=== PATIENT | female | born 1940 | race Two or more races ===

== ENCOUNTER 2017-09-26 16:42 | Inpatient (IN) | payer BC, OTHER ==
[~2017-09-26] VITALS: Ht 167.6 cm; Wt 66.9 kg
[~2017-09-26 16:42] MED LIST: ASPI-231 PO; CITA10TA59; LOSA100T27 PO; METO25TA62
[2017-09-26] MEDS ORDERED: LIDOCAINE 1% HCL (LOCAL ANESTH.) INJ 20ML MDV ONE (18:56)
[2017-09-26] MEDS ORDERED: LIDOCAINE 1% (LOCAL ANESTH.) PF 5ml SDV ID ONE (19:00)
[2017-09-26] MEDS ORDERED: BACITRACIN TOP OINT 1 UD PKG TOP ONE ×2 (19:00→21:02)
[2017-09-26 20:13] LABS: Basophils # (auto) 0.1 uL; Basophils % (auto) 0.6 % (0.0-2.0); Eosinophils # (auto) 0.2 uL; Eosinophils % (auto) 1.5 % (0.0-7.0); Hematocrit 40.3 % (36.0-46.0); Hemoglobin 13.6 g/dL (12.2-16.2); Lymphocytes # (auto) 1.2 uL; Lymphocytes % (auto) 11.9 % (10.0-50.0); Mean Corpuscular Hemoglobin 29.9 pg (28.0-32.0); Mean Corpuscular Hgb Conc. 33.8 g/dL (32.0-36.0); Mean Corpuscular Volume 88.5 fL (80.0-100.0); Monocytes # (auto) 0.6 uL; Monocytes % (auto) 5.3 % (0.0-12.0); Neutrophils # (auto) 8.4 uL; Neutrophils % (auto) 80.7 % (37.0-80.0); Platelet Count (auto) 219 10^3/uL (140-450); Red Blood Cells 4.56 10^6/uL (4.0-5.20); Red Cell Distribution Width 14.6 % (11.8-14.3); White Blood Cell 10.4 10^3/uL (4.4-10.8)
[2017-09-26 20:18] LABS: Alanine Aminotransferase 41 U/L (13-56); Albumin 3.7 g/dL (3.4-5.0); Anion Gap 10 (5-15); Aspartate Aminotransferase 31 U/L (15-37); BUN/Creatinine Ratio 15.2; Blood Urea Nitrogen 16 mg/dL (7-18); Carbon Dioxide 22 mmol/L (21-32); Chloride 104 mmol/L (98-107); GFR African American 65 mL/min; GFR Non-African American 54 mL/min; Glucose 100 mg/dL (74-106); Magnesium 1.9 mg/dL (1.6-2.6); Potassium 3.5 mmol/L (3.5-5.1); Sodium 136 mmol/L (136-145)
[2017-09-26 20:19] LABS: INR 0.99 (0.9-1.15); Partial Thromboplastin Time 27.8 sec (23.78-33.04); Prothrombin Time 10.6 sec (9.27-12.13)
[2017-09-26 20:23] LABS: Alkaline Phosphatase 140 U/L (45-117); Bilirubin, Total 0.7 mg/dL (0.2-1.0); Total Protein 7.4 g/dL (6.4-8.2)
[2017-09-26] MEDS ORDERED: ACETAMINOPHEN 325 MG TAB PO ONE (21:00)
[2017-09-26] MEDS ORDERED: ACETAMINOPHEN 500 MG TAB PO PRN (23:15)
[2017-09-26] MEDS ORDERED: ONDANSETRON HCL 4 MG/2 ML VIAL IV PRN (23:15)
[2017-09-26] MEDS ORDERED: HYDROcodone-ACET 5/325MG TAB PO PRN (23:15)
[2017-09-26 23:26] LABS: Urine Bacteria NONE SEEN /hpf (None Seen); Urine Blood TRACE /uL (Negative); Urine Specific Gravity 1.008 (1.001-1.035); Urine WBC 3 /hpf (0 - 5)
[2017-09-26] MEDS ORDERED: cefTRIAXone 1GM/10ml IVPUSH 10 ML IV ONE (23:58)
[2017-09-27] VITALS (10 sets, daily range): BP systolic 103–139; BP diastolic 63–82
[2017-09-27] MEDS ORDERED: NAPR1TAB PO (02:59)
[2017-09-27] MEDS ORDERED: OME20GT GT (02:59)
[2017-09-27] MEDS ORDERED: CITA10TA59 PO (02:59)
[2017-09-27] MEDS ORDERED: LEVO50TA66 PO (02:59)
[2017-09-27] MEDS ORDERED: AMITRIP PO (02:59)
[2017-09-27 06:49] LABS: BUN/Creatinine Ratio 16.2; Calcium 8.9 mg/dL (8.5-10.1); Potassium 3.2 mmol/L (3.5-5.1)
[2017-09-27 06:52] LABS: Basophils # (auto) 0.1 uL; Basophils % (auto) 0.9 % (0.0-2.0); Eosinophils # (auto) 0.2 uL; Hematocrit 34.5 % (36.0-46.0); Lymphocytes # (auto) 1.6 uL; Lymphocytes % (auto) 22.3 % (10.0-50.0); Mean Corpuscular Hemoglobin 30.5 pg (28.0-32.0); Mean Corpuscular Hgb Conc. 34.7 g/dL (32.0-36.0); Mean Corpuscular Volume 87.9 fL (80.0-100.0); Monocytes # (auto) 0.7 uL; Monocytes % (auto) 10.2 % (0.0-12.0); Neutrophils # (auto) 4.4 uL; Neutrophils % (auto) 63.6 % (37.0-80.0); Nucleated Red Blood Cells % 0.1 %; Platelet Count (auto) 184 10^3/uL (140-450); Red Blood Cells 3.93 10^6/uL (4.0-5.20); Red Cell Distribution Width 14.4 % (11.8-14.3)
[2017-09-27] MEDS: LEVOTHYROXINE SODIUM 50 MCG TAB PO SCH (07:53)
[2017-09-27] MEDS ORDERED: cefTRIAXone 1GM/10ml IVPUSH 10 ML IV SCH (09:00)
[2017-09-27] MEDS: ASPirin-EC 81 mg tab PO SCH (09:58)
[2017-09-27] MEDS: CITALOPRAM HYDROBR 20 MG TAB PO SCH (09:58)
[2017-09-27] MEDS: cefTRIAXone 1GM/10ml IVPUSH 10 ML IV SCH ×2 (09:58→21:32)
[2017-09-27] MEDS ORDERED: POTASSIUM CHL 20 Meq TABLET PO ONE (14:30)
[2017-09-27] MEDS ORDERED: SOD CHL 0.9%/ KCL 40MEQ 1,000 ML IV ONE (14:30)
[2017-09-28] MEDS ORDERED: cefTRIAXone 1GM/10ml IVPUSH 10 ML IV SCH
[2017-09-28 05:00] VITALS: BP 133/69
[2017-09-28 05:44] LABS: Basophils # (auto) 0.1 uL; Basophils % (auto) 0.9 % (0.0-2.0); Eosinophils # (auto) 0.2 uL; Eosinophils % (auto) 3.8 % (0.0-7.0); Hemoglobin 12.3 g/dL (12.2-16.2); Lymphocytes # (auto) 1.4 uL; Mean Corpuscular Hemoglobin 30.7 pg (28.0-32.0); Mean Corpuscular Hgb Conc. 34.3 g/dL (32.0-36.0); Mean Corpuscular Volume 89.6 fL (80.0-100.0); Monocytes # (auto) 0.5 uL; Monocytes % (auto) 8.5 % (0.0-12.0); Neutrophils # (auto) 4.1 uL; Neutrophils % (auto) 64.8 % (37.0-80.0); Nucleated Red Blood Cells % 0.1 %; Platelet Count (auto) 174 10^3/uL (140-450); Red Blood Cells 4.02 10^6/uL (4.0-5.20); Red Cell Distribution Width 14.6 % (11.8-14.3); White Blood Cell 6.3 10^3/uL (4.4-10.8)
[2017-09-28] MEDS: LEVOTHYROXINE SODIUM 50 MCG TAB PO SCH (06:18)
[2017-09-28 06:22] LABS: Potassium 4.6 mmol/L (3.5-5.1)
[2017-09-28 06:35] LABS: BUN/Creatinine Ratio 15.2; Calcium 8.7 mg/dL (8.5-10.1)
[2017-09-28 08:52] VITALS: BP 146/92
[2017-09-28] MEDS ORDERED: METOPROLOL TARTRATE 25 MG TAB PO SCH (10:00)
[2017-09-28] MEDS: cefTRIAXone 1GM/10ml IVPUSH 10 ML IV SCH (10:34)
[2017-09-28] MEDS: ASPirin-EC 81 mg tab PO SCH (10:34)
[2017-09-28] MEDS: CITALOPRAM HYDROBR 20 MG TAB PO SCH (10:34)
[2017-09-28 12:19] VITALS: BP 134/81
[2017-09-28 13:00] VITALS: BP 113/74
== END 2017-09-28 14:50 | disposition home or self-care (01) | DRG 604 ==
LOC: ER 16:42 → OVERFLOW 16:43 → TELE-WESTW 23:41 → WEST WING 09-27 00:09
PROVIDERS: ADMIT Nurse Practitioner Family; ATTEND Internal Medicine
PROC: 0HQ1XZZ Repair Face Skin, External Approach (ICD-10-PCS; principal; 2017-09-26)
DX: S01.81XA Laceration without foreign body of other part of head, initial encounter (principal); N17.0 Acute kidney failure with tubular necrosis; G45.9 Transient cerebral ischemic attack, unspecified; I10 Essential (primary) hypertension; E87.6 Hypokalemia; M21.379 Foot drop, unspecified foot; F32.9 Major depressive disorder, single episode, unspecified; F41.9 Anxiety disorder, unspecified; W01.0XXA Fall on same level from slipping, tripping and stumbling without subsequent striking against object, initial encounter; M48.00 Spinal stenosis, site unspecified; Z86.73 Personal history of transient ischemic attack (TIA), and cerebral infarction without residual deficits; Z79.899 Other long term (current) drug therapy; Y93.89 Activity, other specified; Y92.89 Other specified places as the place of occurrence of the external cause; Y99.8 Other external cause status
CPT/HCPCS: 12013; 36415; 70450; 73502; 80048; 80053; 81001; 83735; 84443; 84484; 85025; 85610; 85730; 93005; 93306; 94761; 96374; J2001

== ENCOUNTER 2019-06-23 12:15 | Emergency (ER) | payer OTHER ==
[~2019-06-23] VITALS: Ht 170.2 cm; Wt 77.1 kg
[~2019-06-23 12:15] MED LIST changes: +AMITRIP PO; -CITA10TA59; +CITA10TA59 PO; +LEVO50TA66 PO; +LOSA-39 PO; -LOSA100T27 PO; -METO25TA62; +METO25TA93; +NAPR1TAB PO; +OME20GT GT
[2019-06-23 13:25] LABS: Basophils # (auto) 0.1 10 ^3/uL (0-0.2); Basophils % (auto) 1.1 % (0.0-2.0); Eosinophils # (auto) 0.2 10 ^3/uL (0-0.8); Eosinophils % (auto) 3.7 % (0.0-7.0); Hematocrit 37.2 % (36.0-46.0); Hemoglobin 12.7 g/dL (12.2-16.2); Lymphocytes % (auto) 18.6 % (10.0-50.0); Mean Corpuscular Hgb Conc. 34.1 g/dL (32.0-36.0); Mean Corpuscular Volume 85.1 fL (80.0-100.0); Monocytes # (auto) 0.4 10 ^3/uL (0-1.3); Monocytes % (auto) 8.2 % (0.0-12.0); Neutrophils # (auto) 3.7 10 ^3/uL (1.6-8.6); Neutrophils % (auto) 68.4 % (37.0-80.0); Platelet Count (auto) 211 10^3/uL (140-450); Red Blood Cells 4.38 10^6/uL (4.0-5.20); Red Cell Distribution Width 15.1 % (11.8-14.3); White Blood Cell 5.4 10^3/uL (4.4-10.8)
[2019-06-23 13:42] LABS: Alanine Aminotransferase 30 U/L (13-56); Albumin 3.7 g/dL (3.4-5.0); Anion Gap 5 (5-15); Aspartate Aminotransferase 28 U/L (15-37); Blood Urea Nitrogen 21 mg/dL (7-18); Calcium 8.9 mg/dL (8.5-10.1); Carbon Dioxide 29 mmol/L (21-32); Chloride 98 mmol/L (98-107); GFR African American 65 mL/min; GFR Non-African American 54 mL/min; Glucose 85 mg/dL (74-106); Sodium 132 mmol/L (136-145)
[2019-06-23 13:47] LABS: Alkaline Phosphatase 132 U/L (45-117); Bilirubin, Total 0.7 mg/dL (0.2-1.0); Total Protein 7.4 g/dL (6.4-8.2)
[2019-06-23 13:52] LABS: Potassium 2.7 mmol/L (3.5-5.1)
[2019-06-23] MEDS ORDERED: POTASSIUM CHL 20MEQ/100ML 100 ML IV ONE (14:15)
[2019-06-23] MEDS ORDERED: POTASSIUM EFFERVESENT TAB 25 MEQ PO ONE (14:15)
[2019-06-23 15:08] VITALS: BP 126/68
== END 2019-06-23 15:10 | disposition home or self-care (01) ==
LOC: EDBD 12:15 → ER 12:20
DX: S86.811A Strain of other muscle(s) and tendon(s) at lower leg level, right leg, initial encounter (principal); E87.6 Hypokalemia; F41.9 Anxiety disorder, unspecified; R51 Headache; F32.9 Major depressive disorder, single episode, unspecified; K21.9 Gastro-esophageal reflux disease without esophagitis; I10 Essential (primary) hypertension; Z79.82 Long term (current) use of aspirin; Z79.899 Other long term (current) drug therapy; Z86.73 Personal history of transient ischemic attack (TIA), and cerebral infarction without residual deficits; Z96.653 Presence of artificial knee joint, bilateral; W01.0XXA Fall on same level from slipping, tripping and stumbling without subsequent striking against object, initial encounter; Y93.89 Activity, other specified; Y92.89 Other specified places as the place of occurrence of the external cause; Y99.8 Other external cause status
CPT/HCPCS: 36415; 70450; 71045; 72192; 80053; 84484; 85025; 96365; 99285; J3480; 96366

== ENCOUNTER 2022-06-10 18:04 | Inpatient (IN) | payer OTHER ==
[~2022-06-10] VITALS: Ht 162.6 cm; Wt 71.7 kg
[~2022-06-10 18:04] MED LIST changes: +AMIT25TA11 PO; -AMITRIP PO; -ASPI-231 PO; +ASPI1TAB20 PO; -CITA10TA59 PO; +CITA10TA8 PO
[2022-06-10 19:53] LABS: Basophils # (auto) 0 10 ^3/uL (0-0.2); Basophils % (auto) 0.6 % (0.0-2.0); Eosinophils # (auto) 0 10 ^3/uL (0-0.8); Eosinophils % (auto) 0.7 % (0.0-7.0); Hematocrit 35.1 % (36.0-46.0); Hemoglobin 11.9 g/dL (12.2-16.2); Lymphocytes # (auto) 0.6 10 ^3/uL (0.4-5.4); Lymphocytes % (auto) 9.8 % (10.0-50.0); Mean Corpuscular Hemoglobin 28.5 pg (28.0-32.0); Mean Corpuscular Hgb Conc. 33.8 g/dL (32.0-36.0); Mean Corpuscular Volume 84.2 fL (80.0-100.0); Monocytes # (auto) 0.5 10 ^3/uL (0-1.3); Monocytes % (auto) 7.5 % (0.0-12.0); Neutrophils # (auto) 5.2 10 ^3/uL (1.6-8.6); Neutrophils % (auto) 81.4 % (37.0-80.0); Red Blood Cells 4.17 10^6/uL (4.0-5.20); Red Cell Distribution Width 13.9 % (11.8-14.3); White Blood Cell 6.3 10^3/uL (4.4-10.8)
[2022-06-10 20:05] LABS: Albumin 3.4 g/dL (3.4-5.0); BUN/Creatinine Ratio 12.9; Calcium 8.6 mg/dL (8.5-10.1); Potassium 3.2 mmol/L (3.5-5.1)
[2022-06-11] MEDS ORDERED: metroNIDAZOLE 500MG/100ML 100 ML IV ONE (00:45)
[2022-06-11] MEDS ORDERED: CIPROFLOXACIN 400MG/200ML 200 ML IV ONE (00:45)
[2022-06-11] MEDS ORDERED: ONDANSETRON HCL 4 MG/2 ML VIAL IV PRN (02:15)
[2022-06-11] MEDS ORDERED: HYDROcodone-ACET 5/325MG TAB PO PRN (02:15)
[2022-06-11] MEDS ORDERED: MORPHINE SULFATE INJ 2 MG/ml SYRG IV PRN (02:15)
[2022-06-11] MEDS ORDERED: POTASSIUM CHL 20 Meq TABLET PO ONE (05:45)
[2022-06-11] MEDS ORDERED: metroNIDAZOLE 500MG/100ML 100 ML IV SCH (06:00)
[2022-06-11] MEDS: LEVOTHYROXINE SODIUM 50 MCG TAB PO SCH (07:23)
[2022-06-11] MEDS: cefTRIAXone 1GM/50ML D5W 50 ML IV SCH (09:48)
[2022-06-11] MEDS: METOPROLOL TARTRATE 25 MG TAB PO SCH ×2 (10:00→22:03)
[2022-06-11] MEDS: amLODIPine BESYLATE 5 MG TAB PO SCH (10:00)
[2022-06-11] MEDS: PANTOPRAZOLE 40 MG TAB PO SCH (10:29)
[2022-06-11] MEDS: SERTRALINE HCL 50 MG TAB PO SCH (10:29)
[2022-06-11] MEDS: metroNIDAZOLE 500MG/100ML 100 ML IV SCH ×2 (10:56→17:21)
[2022-06-11 14:05] VITALS: BP 126/65
[2022-06-11] MEDS: SODIUM CHLORIDE 0.9% 1,000 ML IV SCH (14:16)
[2022-06-11 14:18] LABS: Basophils # (auto) 0 10 ^3/uL (0-0.2); Basophils % (auto) 0.7 % (0.0-2.0); Eosinophils # (auto) 0.1 10 ^3/uL (0-0.8); Eosinophils % (auto) 1.9 % (0.0-7.0); Hematocrit 33.7 % (36.0-46.0); Hemoglobin 11.1 g/dL (12.2-16.2); Lymphocytes # (auto) 0.8 10 ^3/uL (0.4-5.4); Mean Corpuscular Hemoglobin 27.8 pg (28.0-32.0); Mean Corpuscular Hgb Conc. 32.8 g/dL (32.0-36.0); Mean Corpuscular Volume 84.5 fL (80.0-100.0); Monocytes # (auto) 0.4 10 ^3/uL (0-1.3); Monocytes % (auto) 11.9 % (0.0-12.0); Neutrophils # (auto) 2.1 10 ^3/uL (1.6-8.6); Neutrophils % (auto) 61.5 % (37.0-80.0); Nucleated Red Blood Cells % 0.2 %; Red Blood Cells 3.99 10^6/uL (4.0-5.20); Red Cell Distribution Width 13.9 % (11.8-14.3); White Blood Cell 3.5 10^3/uL (4.4-10.8)
[2022-06-11 14:34] LABS: BUN/Creatinine Ratio 16.5; Calcium 8.8 mg/dL (8.5-10.1); Potassium 3.7 mmol/L (3.5-5.1)
[2022-06-11 17:04] VITALS: BP 113/69
[2022-06-11] MEDS: SUCRALFATE 1 GM/10 ML ORAL SUSP PO SCH ×2 (17:21→22:02)
[2022-06-11 22:00] VITALS: BP 108/66
[2022-06-11] MEDS: ACETAMINOPHEN 325 MG TAB PO PRN (22:31)
[2022-06-12] MEDS: SODIUM CHLORIDE 0.9% 1,000 ML IV SCH ×2 (01:50→17:43)
[2022-06-12] MEDS: metroNIDAZOLE 500MG/100ML 100 ML IV SCH ×3 (03:00→18:23)
[2022-06-12 05:00] VITALS: BP 110/58
[2022-06-12 06:01] LABS: BUN/Creatinine Ratio 12.9; Bilirubin, Total 0.4 mg/dL (0.2-1.0); Calcium 8.2 mg/dL (8.5-10.1); Magnesium 1.9 mg/dL (1.6-2.6); Potassium 3.8 mmol/L (3.5-5.1); Total Protein 6.1 g/dL (6.4-8.2)
[2022-06-12 06:09] LABS: Basophils # (auto) 0 10 ^3/uL (0-0.2); Basophils % (auto) 0.8 % (0.0-2.0); Eosinophils # (auto) 0.2 10 ^3/uL (0-0.8); Eosinophils % (auto) 5.5 % (0.0-7.0); Hemoglobin 11.1 g/dL (12.2-16.2); Lymphocytes # (auto) 1.1 10 ^3/uL (0.4-5.4); Mean Corpuscular Hemoglobin 29.1 pg (28.0-32.0); Mean Corpuscular Hgb Conc. 33.6 g/dL (32.0-36.0); Mean Corpuscular Volume 86.7 fL (80.0-100.0); Monocytes # (auto) 0.5 10 ^3/uL (0-1.3); Monocytes % (auto) 14.3 % (0.0-12.0); Neutrophils # (auto) 1.6 10 ^3/uL (1.6-8.6); Neutrophils % (auto) 47.4 % (37.0-80.0); Nucleated Red Blood Cells % 0.2 %; Red Cell Distribution Width 13.9 % (11.8-14.3); White Blood Cell 3.3 10^3/uL (4.4-10.8)
[2022-06-12] MEDS: SUCRALFATE 1 GM/10 ML ORAL SUSP PO SCH ×4 (06:12→22:22)
[2022-06-12] MEDS: LEVOTHYROXINE SODIUM 50 MCG TAB PO SCH (06:12)
[2022-06-12 08:38] VITALS: BP 113/66
[2022-06-12] MEDS: cefTRIAXone 1GM/50ML D5W 50 ML IV SCH (10:05)
[2022-06-12] MEDS: PANTOPRAZOLE 40 MG TAB PO SCH (10:06)
[2022-06-12] MEDS: METOPROLOL TARTRATE 25 MG TAB PO SCH ×2 (10:06→22:22)
[2022-06-12] MEDS: SERTRALINE HCL 50 MG TAB PO SCH (10:06)
[2022-06-12] MEDS: amLODIPine BESYLATE 5 MG TAB PO SCH (10:06)
[2022-06-12 13:07] VITALS: BP 104/67
[2022-06-12 22:00] VITALS: BP 113/53
[2022-06-12] MEDS: ACETAMINOPHEN 325 MG TAB PO PRN (22:22)
[2022-06-13] MEDS: metroNIDAZOLE 500MG/100ML 100 ML IV SCH ×3 (02:24→17:16)
[2022-06-13 05:00] VITALS: BP 139/71
[2022-06-13 06:22] LABS: Potassium 3.3 mmol/L (3.5-5.1)
[2022-06-13 06:27] LABS: BUN/Creatinine Ratio 8.9; Calcium 8.6 mg/dL (8.5-10.1)
[2022-06-13] MEDS: SUCRALFATE 1 GM/10 ML ORAL SUSP PO SCH ×4 (06:33→21:41)
[2022-06-13] MEDS: LEVOTHYROXINE SODIUM 50 MCG TAB PO SCH (06:34)
[2022-06-13] MEDS: SODIUM CHLORIDE 0.9% 1,000 ML IV SCH ×2 (07:30→17:19)
[2022-06-13] MEDS ORDERED: POTASSIUM CHL 20 Meq TABLET PO ONE (08:45)
[2022-06-13 09:00] VITALS: BP 133/85
[2022-06-13] MEDS: PANTOPRAZOLE 40 MG TAB PO SCH (10:13)
[2022-06-13] MEDS: METOPROLOL TARTRATE 25 MG TAB PO SCH ×2 (10:14→21:42)
[2022-06-13] MEDS: amLODIPine BESYLATE 5 MG TAB PO SCH (10:14)
[2022-06-13] MEDS: SERTRALINE HCL 50 MG TAB PO SCH (10:14)
[2022-06-13] MEDS: cefTRIAXone 1GM/50ML D5W 50 ML IV SCH (10:15)
[2022-06-13] MEDS: ACETAMINOPHEN 325 MG TAB PO PRN (11:07)
[2022-06-13 13:00] VITALS: BP 123/81
[2022-06-13 17:00] VITALS: BP 141/74
[2022-06-13 22:00] VITALS: BP 135/82
[2022-06-14] MEDS: metroNIDAZOLE 500MG/100ML 100 ML IV SCH ×2 (01:56→10:45)
[2022-06-14 05:00] VITALS: BP 145/85
[2022-06-14] MEDS: SUCRALFATE 1 GM/10 ML ORAL SUSP PO SCH ×2 (06:41→09:23)
[2022-06-14] MEDS: LEVOTHYROXINE SODIUM 50 MCG TAB PO SCH (06:41)
[2022-06-14 07:01] LABS: BUN/Creatinine Ratio 6.8; Calcium 8.9 mg/dL (8.5-10.1); Potassium 3.8 mmol/L (3.5-5.1)
[2022-06-14] MEDS: SODIUM CHLORIDE 0.9% 1,000 ML IV SCH (07:10)
[2022-06-14] MEDS ORDERED: POTASSIUM CHL 20 Meq TABLET PO ONE (07:15)
[2022-06-14 08:00] VITALS: BP 131/92
[2022-06-14] MEDS ORDERED: ZINC220C10 PO (08:30)
[2022-06-14] MEDS ORDERED: ASCO500T11 PO (08:30)
[2022-06-14] MEDS ORDERED: CHOL1CAP47 PO (08:30)
[2022-06-14] MEDS: cefTRIAXone 1GM/50ML D5W 50 ML IV SCH (09:23)
[2022-06-14] MEDS: PANTOPRAZOLE 40 MG TAB PO SCH (09:23)
[2022-06-14] MEDS: SERTRALINE HCL 50 MG TAB PO SCH (09:23)
[2022-06-14] MEDS: amLODIPine BESYLATE 5 MG TAB PO SCH (09:24)
[2022-06-14] MEDS: METOPROLOL TARTRATE 25 MG TAB PO SCH (09:25)
[2022-06-14 12:00] VITALS: BP 103/73
[2022-06-14 12:39] VITALS: BP 131/92
== END 2022-06-14 14:00 | disposition home or self-care (01) | DRG 391 ==
LOC: EDBD 18:04 → ER 18:04 → OVERFLOW 06-11 02:07 → CENTRAL 06-11 13:41
PROVIDERS: ADMIT Nurse Practitioner; ATTEND Internal Medicine Geriatric Medicine
DX: K57.32 Diverticulitis of large intestine without perforation or abscess without bleeding (principal); U07.1 COVID-19; N17.9 Acute kidney failure, unspecified; E86.0 Dehydration; E87.6 Hypokalemia; E11.9 Type 2 diabetes mellitus without complications; I10 Essential (primary) hypertension; E03.9 Hypothyroidism, unspecified; F41.9 Anxiety disorder, unspecified; F32.A Depression, unspecified; K21.9 Gastro-esophageal reflux disease without esophagitis; Z82.3 Family history of stroke; Z82.49 Family history of ischemic heart disease and other diseases of the circulatory system; Z86.73 Personal history of transient ischemic attack (TIA), and cerebral infarction without residual deficits; Z88.1 Allergy status to other antibiotic agents; Z88.8 Allergy status to other drugs, medicaments and biological substances
CPT/HCPCS: 36415; 71045; 74176; 80048; 80053; 83690; 83735; 83880; 84484; 85025; 87426; 96365; 96375; 97163; G0378; J0696; J2405; J3490